=== PATIENT | female | born 1970 | race Caucasian/White ===

== ENCOUNTER 2019-04-27 23:52 | Emergency (ER) | payer OTHER ==
[2019-04-28] MEDS ORDERED: METOCLOPRAMIDE HCL ORAL SOLN 10 MG/10 ML UDCUP PO ONE (01:46)
[2019-04-28] MEDS ORDERED: LIDOCAINE 2% VISCOUS SOLN 20 ML UDCUP PO ONE (01:46)
[2019-04-28] MEDS ORDERED: MAG HYDROX/AL HYDROX/SIMETH SUSP 30 ML UDCUP PO ONE (01:46)
--- NOTE | 2019-04-28 01:48 | ER Document Report ---
ED Medical Screen (RME) - General Chief Complaint: Abdominal Pain Stated Complaint: ABDOMINAL PAIN Time Seen by Provider: 04/28/19 01:46 Notes: Patient is a 48-year-old female presents to the emergency department for epigastric and right upper abdominal pain. Patient states she also had an episode of vomiting. Patient's denying any dysuria or fevers. Patient states she did have this pain prior and felt as though it was indigestion. States she never did get medical attention for same. GENERAL: Alert, interacts well. No acute distress. ABDOMEN: Soft, generalized epigastric and right upper quadrant pain noted. Otherwise abdominal exam benign. Non-distended. Bowel sounds present in all 4 quadrants. I have greeted and performed a rapid initial assessment of this patient. A comprehensive ED assessment and evaluation of the patient, analysis of test results and completion of the medical decision making process will be conducted by additional ED providers. I have specifically instructed the patient or family members with the patient to immediately return to any nursing staff should anything change in the patient's condition or with their chief complaint. This medical record was dictated with voice recognizing software. There may be grammatical, syntax errors that are unintended. - Related Data Allergies/Adverse Reactions: sulfamethoxazole [From Bactrim] Allergy (Verified 04/28/19 01:40) trimethoprim [From Bactrim] Allergy (Verified 04/28/19 01:40) Past Medical History - Social History Chew tobacco use (# tins/day): No Drug Abuse: None Physical Exam - Vital signs Vitals: Temp Pulse Resp BP Pulse Ox 98.3 F 90 16 119/78 98 04/28/19 00:04/28/19 00:04/28/19 00:04/28/19 00:04/28/19 00:28 Course - Vital Signs Vital signs: Temp Pulse Resp BP Pulse Ox 98.3 F 90 16 119/78 98 04/28/19 00:04/28/19 00:04/28/19 00:04/28/19 00:04/28/19 00:28
[2019-04-28 02:07] LABS: ABSOLUTE LYMPHOCYTES (AUTO) 1.9 10^3/uL (0.5-4.7); ABSOLUTE MONOCYTES (AUTO) 1.2 10^3/uL (0.1-1.4); ABSOLUTE NEUT (AUTO) 13.6 10^3/uL (1.7-8.2); BASOPHILS % (AUTO) 0.1 % (0-2); EOSINOPHILS % (AUTO) 0.1 % (0-6); HEMATOCRIT 39.7 % (36.0-47.0); HEMOGLOBIN 13.5 g/dL (12.0-15.5); LYMPHOCYTES % (AUTO) 11.4 % (13-45); MEAN CORPUSCULAR HGB CONC 34.1 g/dL (32.0-36.0); MEAN CORPUSCULAR VOLUME 88 fl (80-97); MONOCYTES % (AUTO) 7.4 % (3-13); PLATELET COUNT 350 10^3/uL (150-450); RED BLOOD COUNT 4.52 10^6/uL (3.72-5.28); RED CELL DISTRIBUTION WIDTH 12.7 % (11.5-14.0); TOTAL CELLS COUNTED % (AUTO) 100 %; WHITE BLOOD COUNT 16.8 10^3/uL (4.0-10.5)
[2019-04-28 02:25] LABS: APPEARANCE,URINE CLEAR; BILIRUBIN,URINE NEGATIVE (NEGATIVE); COLOR,URINE YELLOW; GLUCOSE, URINE 50 mg/dL (NEGATIVE); KETONES,URINE NEGATIVE (NEGATIVE); LEUKOCYTE ESTERASE,URINE NEGATIVE (NEGATIVE); NITRITE,URINE NEGATIVE (NEGATIVE); PROTEIN,URINE 30 mg/dL (NEGATIVE); URINE SPECIFIC GRAVITY 1.024; UROBILINOGEN,URINE NEGATIVE mg/dL (<2.0)
[2019-04-28 02:35] LABS: ALBUMIN 4.6 g/dL (3.5-5.0); ALKALINE PHOSPHATASE 51 U/L (38-126); ANION GAP 11 (5-19); ASPARTATE AMINO TRANSFERASE 28 U/L (14-36); BILIRUBIN,DIRECT 0.1 mg/dL (0.0-0.4); BILIRUBIN,TOTAL 0.4 mg/dL (0.2-1.3); BLOOD UREA NITROGEN 10 mg/dL (7-20); CALCIUM 10.5 mg/dL (8.4-10.2); CARBON DIOXIDE 25 mmol/L (22-30); CHLORIDE 105 mmol/L (98-107); GLUCOSE 131 mg/dL (75-110); TOTAL PROTEIN 8.1 g/dL (6.3-8.2)
--- NOTE | 2019-04-28 03:01 | RADIOLOGY REPORT (SQ) ---
Ultrasound right upper quadrant on 04/28/2019 at 2:08 AM CLINICAL INDICATION: Right upper quadrant and epigastric pain COMPARISON: None FINDINGS: Multiple sonographic images are obtained throughout the right upper quadrant, both transverse and sagittal images are obtained. Visualized pancreas is unremarkable. Visualized aorta is unremarkable without evidence of an aneurysm. Visualized liver is homogeneous without focal lesion or evidence of intrahepatic biliary ductal dilatation. Common duct measures 5 mm which is within normal limits mitigating against obstruction of the biliary tree. Right kidney shows no hydronephrosis. No gallstones, gallbladder wall thickening or pericholecystic fluid is noted. No free fluid is noted in the right upper quadrant. IMPRESSION: Essentially unremarkable exam.
[2019-04-28] MEDS ORDERED: ONDANSETRON HCL INJ/PF 4 MG/2 ML SDV IV ONE (03:34)
[2019-04-28] MEDS ORDERED: FAMOTIDINE 20 MG TABLET PO ONE (03:34)
[2019-04-28] MEDS ORDERED: SUCRALFATE 1 GM TABLET PO ONE (03:34)
[2019-04-28] MEDS ORDERED: NORMAL SALINE 500 ML IV ONE (03:34)
[2019-04-28] MEDS ORDERED: HYDROCODONE/ACETAMINOPHEN 5-325 MG TABLET PO ONE (03:35)
[2019-04-28] MEDS ORDERED: HYDROCODONE/ACETAMINOPHEN 5-325 MG (6 TAB/ER DISP) PO PRN (03:35)
--- NOTE | 2019-04-28 03:37 | ER Document Report ---
ED GI/ - General Chief Complaint: Epigastric Pain Stated Complaint: ABDOMINAL PAIN Time Seen by Provider: 04/28/19 01:46 Notes: Patient is a 48-year-old female that comes to the emergency department for chief complaint of an episode where she had sharp pain in her epigastric area (she points to the upper abdomen), she states that this happened this evening prior to arrival, she states that the pain caused her to vomit. She states it felt like a sharp cramp that she could not get rid of. Symptoms did resolve but now she does not complain of anything except some vague soreness in the upper abdomen. She states she has had this before usually preceded by intense heartburn. She denies pain in her chest, shortness of breath, flank pain, or fever. She denies hematemesis. She states that she has been taking ibuprofen over the past couple of days, she also drank "a lot of caffeine today", she also ate a very heavy meal prior to going to bed. She denies smoking, alcohol, recreational drugs. She states she takes medications for "constipation dominant ulcerative colitis", has had colonoscopies, has never had an endoscopy. She d oes follow-up with gastroenterology. She states she has been having normal bowel movements daily. - Related Data Allergies/Adverse Reactions: sulfamethoxazole [From Bactrim] Allergy (Verified 04/28/19 01:40) trimethoprim [From Bactrim] Allergy (Verified 04/28/19 01:40) Past Medical History - General Information source: Patient - Social History Smoking Status: Never Smoker Chew tobacco use (# tins/day): No Drug Abuse: None Lives with: Family Family History: Reviewed & Not Pertinent Patient has suicidal ideation: No Patient has homicidal ideation: No GI Medical History: Reports: Other - Ulcerative colitis - Immunizations Immunizations up to date: Yes Hx Diphtheria, Pertussis, Tetanus Vaccination: Yes Review of Systems - Review of Systems Constitutional: No symptoms reported EENT: No symptoms reported Cardiovascular: No symptoms reported Respiratory: No symptoms reported Gastrointestinal: See HPI Genitourinary: No symptoms reported Female Genitourinary: No symptoms reported Musculoskeletal: No symptoms reported Skin: No symptoms reported Hematologic/Lymphatic: No symptoms reported Neurological/Psychological: No symptoms reported Physical Exam - Vital signs Vitals: Temp Pulse Resp BP Pulse Ox 98.3 F 90 16 119/78 98 04/28/19 00:28 04/28/19 00:28 04/28/19 00:28 04/28/19 00:04/28/19 00:28 - Notes Notes: GENERAL: Alert, interacts well. No acute distress. HEAD: Normocephalic, atraumatic. EYES: Pupils equal, round, and reactive to light. Extraocular movements intact. ENT: Oral mucosa moist, tongue midline. Oropharynx unremarkable. Airway patent. NECK: Full range of motion. Supple. Trachea midline. LUNGS: Clear to auscultation bilaterally, no wheezes, rales, or rhonchi. No respiratory distress. HEART: Regular rate and rhythm. No murmur ABDOMEN: There is mild tenderness in the mid and epigastric area, remaining abdomen is completely benign, no guarding or rigidity. Bowel sounds present. GENITOURINARY: Deferred EXTREMITIES: Moves all 4 extremities spontaneously. No edema, normal radial and dorsalis pedis pulses bilaterally. No cyanosis. BACK: no cervical, thoracic, lumbar midline tenderness. No saddle anesthesia, normal distal neurovascular exam. Moves all extremities in full range of motion. NEUROLOGICAL: Alert and oriented x3. Normal speech. Cranial nerves II through XII grossly intact. PSYCH: Normal affect, normal mood. SKIN: Warm, dry, normal turgor. No rashes or lesions noted. Course - Re-evaluation Re-evalutation: Patient with minimal abdominal pain now that she describes a soreness and there is only minimal pain on exam. Vital signs unremarkable. Patient is talkative and well-appearing. She states she has had this before proceeded by bad heartburn. She also states that she drinks a lot of caffeine, started taking ibuprofen, and ate a heavy meal. Ultrasound of the upper abdomen unremarkable. CBC shows leukocytosis but this is nonspecific given patient's vomiting. Patient requesting medication and to be discharged. I feel that the presentation is most consistent with esophageal spasm, patient will be treated for inflammation of the upper gastrointestinal tract and she already has gastroenterology follow-up. Chemistry unremarkable, urinalysis unremarkable, given IV fluids and p.o. medications which she tolerated without difficulty. Alok follow-up and return precautions. Stable at time of discharge. - Vital Signs Vital signs: Temp Pulse Resp BP Pulse Ox 97.8 F 72 16 122/81 96 04/28/19 05:02 04/28/19 05:02 04/28/19 05:02 04/28/19 05:02 04/28/19 05:02 - Laboratory Result Diagrams: 04/28/19 01:50 04/28/19 01:50 Laboratory results interpreted by me: 04/28/19 04/28/19 04/28/19 01:50 01:50 01:50 WBC 16.8 H Lymph % (Auto) 11.4 L Absolute Neuts (auto) 13.6 H Seg Neutrophils % 81.0 H Glucose 131 H Calcium 10.5 H Urine Protein 30 H Urine Glucose (UA) 50 H Urine Blood SMALL H Discharge - Discharge Clinical Impression: Epigastric pain Vomiting Qualifiers: Vomiting type: unspecified Vomiting Intractability: non-intractable Nausea presence: with nausea Qualified Code(s): R11.2 - Nausea with vomiting, unspecified Condition: Stable Disposition: HOME, SELF-CARE Additional Instructions: Your work-up including the ultrasound does not show a specific concerning abnormality at this time. I suspect you had an esophageal spasm, I recommend the Carafate and famotidine, take the provided pain medication only if needed, take Tylenol otherwise. Take the nausea medication Zofran if needed. I recommend temporarily you avoid [id number] NSAIDs such as ibuprofen, caffeine, spicy food, alcohol, smoking. Follow-up with your compliance nurse for additional management. Return if you worsen including returned symptoms, vomiting, fever, vomiting blood, or any other concerning symptoms. Prescriptions: Sucralfate [Carafate 1 gm Tablet] 1 gm PO QID #20 tablet Famotidine [Pepcid 20 mg Tablet] 20 mg PO BID #14 tablet Ondansetron [Zofran Odt 4 mg Tablet] 1 - 2 tab PO Q4H PRN #15 tab.rapdis PRN Reason: For Nausea/Vomiting
[2019-04-28 05:03] VITALS: BP 122/81
== END 2019-04-28 05:03 | disposition home or self-care (01) ==
LOC: ER 23:52
DX: K52.9 Noninfective gastroenteritis and colitis, unspecified (principal); R10.13 Epigastric pain; R10.816 Epigastric abdominal tenderness; D72.829 Elevated white blood cell count, unspecified; K51.90 Ulcerative colitis, unspecified, without complications; K59.00 Constipation, unspecified; Z79.899 Other long term (current) drug therapy; R11.2 Nausea with vomiting, unspecified; Z88.1 Allergy status to other antibiotic agents
CPT/HCPCS: 36415; 83690; 85025; 81025; 80053; 81001; 76705; J2405; J7040; 96361; 96374; 99284